=== PATIENT | female | born 1955 | race Caucasian/White ===

== ENCOUNTER 2017-03-24 15:44 | Emergency (ER) | payer OTHER ==
[~2017-03-24] VITALS: Ht 172.7 cm; Wt 71.8 kg
[2017-03-24 16:28] LABS: MCH 30.9 PG (29.0-34.0); MCHC 35.3 G/DL (30.0-36.0); MCV 87.5 FL (83-99); MEAN PLAT.VOLUME 11.1 uM^3 (9.5-12.4); PLATELET COUNT 186 K/uL (156-360); RBC DIS.WIDTH-CV 11.6 % (11.8-14.6); RBC DIS.WIDTH-SD 37.4 % (39-53); RED BLOOD COUNT 4.57 M/uL (3.80-5.20); WHITE BLOOD COUNT 5.1 K/uL (4.1-10.2)
[2017-03-24 16:38] LABS: CHLORIDE 92 mEq/L (99-109); POTASSIUM 3.2 mEq/L (3.7-5.4); SODIUM 130 mEq/L (136-147)
[2017-03-24 16:40] LABS: GLUCOSE 94 mg/dL (70-99)
[2017-03-24 16:41] LABS: ANION GAP 10 MEQ/L (2-14)
[2017-03-24 16:44] LABS: GFR ESTIMATE (CALCULATED) > 59 mL/min/
[2017-03-24 16:45] LABS: UREA NITROGEN (BUN) 23 mg/dL (9-23)
[2017-03-24 16:50] LABS: TROP-I INTERPRETATION NEGATIVE; TROPONIN-I < 0.01 ng/mL (0.0-0.30)
[2017-03-24 17:25] LABS: ADD MIUA? NO; BILIRUBIN NEGATIVE; BLOOD NEGATIVE; COLOR COLORLESS ((YELLOW)); GLUCOSE (STRIP) NEGATIVE; KETONES NEGATIVE; LEUKOCYTES NEGATIVE; NITRITE NEGATIVE; PROTEIN (STRIP) NEGATIVE; SPECIFIC GRAVITY 1.005 (1.000-1.030); UCUL ADDED? NO; UROBILINOGEN 0.2 MG/DL (0.2-1.0)
[2017-03-24 19:18] LABS: TROP-I INTERPRETATION NEGATIVE; TROPONIN-I < 0.01 ng/mL (0.0-0.30)
[2017-03-24] MEDS ORDERED: NITROSTAT0.4 MG SL (21:40)
[2017-03-24 21:50] VITALS: BP 156/74
== END 2017-03-24 22:05 | disposition home or self-care (01) ==
LOC: EME 15:44
PROVIDERS: Physician Assistant; Physician Assistant Medical
DX: R07.9 Chest pain, unspecified (principal); E87.6 Hypokalemia; E87.1 Hypo-osmolality and hyponatremia; I10 Essential (primary) hypertension; E78.00 Pure hypercholesterolemia, unspecified
CPT/HCPCS: 71020; 80048; 81003; 84484; 85027; 93005; 99281; 99285; J7030

== ENCOUNTER 2017-04-29 12:27 | Emergency (ER) | payer OTHER ==
[~2017-04-29] VITALS: Ht 172.7 cm; Wt 74.5 kg
[~2017-04-29 12:27] MED LIST: NITROSTAT0.4 MG SL
[2017-04-29 13:55] LABS: HEMATOCRIT 39.4 % (36.0-46.0); MCHC 34.5 G/DL (30.0-36.0); MCV 89.7 FL (83-99); PLATELET COUNT 221 K/uL (156-360); RBC DIS.WIDTH-CV 11.6 % (11.8-14.6); RED BLOOD COUNT 4.39 M/uL (3.80-5.20); WHITE BLOOD COUNT 5.2 K/uL (4.1-10.2)
[2017-04-29 14:04] LABS: CHLORIDE 97 mEq/L (99-109); POTASSIUM 4.2 mEq/L (3.7-5.4); SODIUM 133 mEq/L (136-147)
[2017-04-29 14:06] LABS: GLUCOSE 97 mg/dL (70-99)
[2017-04-29 14:07] LABS: ANION GAP 6 MEQ/L (2-14)
[2017-04-29 14:09] LABS: GFR ESTIMATE (CALCULATED) > 59 mL/min/
[2017-04-29 14:10] LABS: UREA NITROGEN (BUN) 16 mg/dL (9-23)
[2017-04-29 14:18] LABS: TROP-I INTERPRETATION NEGATIVE; TROPONIN-I < 0.01 ng/mL (0.0-0.30)
[2017-04-29] MEDS ORDERED: LOSARTAN POTAS100 MG PO (14:51)
[2017-04-29] MEDS ORDERED: CHLORTHALIDONE25 MG PO (14:52)
[2017-04-29] MEDS ORDERED: CARVEDILOL12.5 MG PO (14:52)
[2017-04-29] MEDS ORDERED: TENEX1 MG PO (14:53)
[2017-04-29 17:27] LABS: TROP-I INTERPRETATION NEGATIVE; TROPONIN-I < 0.01 ng/mL (0.0-0.30)
[2017-04-29 18:47] VITALS: BP 185/96
== END 2017-04-29 19:06 | disposition home or self-care (01) ==
LOC: EME 12:27
PROVIDERS: Emergency Medicine
DX: R07.89 Other chest pain (principal); R51 Headache; R42 Dizziness and giddiness; I10 Essential (primary) hypertension; I44.0 Atrioventricular block, first degree; Z87.440 Personal history of urinary (tract) infections
CPT/HCPCS: 70450; 71020; 80048; 84484; 85027; 93005; 99281; 99283; J7030

== ENCOUNTER → 2017-07-29 | Outpatient (CLI) | payer OTHER ==
[~2017-07-29] MED LIST changes: +CARVEDILOL12.5 MG PO; +CHLORTHALIDONE25 MG PO; +EYE DROPS ADVAN15 ML BOTH EYES; +HYDRALAZINE HCL25 MG PO; +LOSARTAN POTAS100 MG PO; +MAGNESIUM250 MG PO; +NITROGLYCERIN0.4 MG SL; +OMEGA 3 500 SO1 EACH PO; +POTASSIUM CHLO20 ME1 PO; +PROMETHAZINE HC25 M1 PO; +SPIRONOLACTONE25 MG PO; +TENEX1 MG PO; +TYLENOL EXTRA500 MG PO; +VITAMIN D2000 UNI1 PO; +[UNRECOGNIZED DRUG - OTHER]
== END | disposition home or self-care (01) ==
LOC: PICC 14:55
DX: L03.011 Cellulitis of right finger (principal)
CPT/HCPCS: 76937

== ENCOUNTER 2017-07-31 23:53 | Observation (INO) | payer OTHER ==
[~2017-07-31] VITALS: Ht 172.7 cm; Wt 75.6 kg
[~2017-07-31 23:53] MED LIST changes: -EYE DROPS ADVAN15 ML BOTH EYES; -HYDRALAZINE HCL25 MG PO; -MAGNESIUM250 MG PO; -NITROGLYCERIN0.4 MG SL; -OMEGA 3 500 SO1 EACH PO; -POTASSIUM CHLO20 ME1 PO; -PROMETHAZINE HC25 M1 PO; -SPIRONOLACTONE25 MG PO; -TYLENOL EXTRA500 MG PO; -VITAMIN D2000 UNI1 PO; -[UNRECOGNIZED DRUG - OTHER]
[2017-08-01 00:54] LABS: HEMATOCRIT 36.5 % (36.0-46.0); MCH 31.4 PG (29.0-34.0); MCHC 36.2 G/DL (30.0-36.0); MCV 86.9 FL (83-99); MEAN PLAT.VOLUME 10.7 uM^3 (9.5-12.4); PLATELET COUNT 233 K/uL (156-360); RBC DIS.WIDTH-CV 11.3 % (11.8-14.6); RBC DIS.WIDTH-SD 36.3 % (39-53); WHITE BLOOD COUNT 6.9 K/uL (4.1-10.2)
[2017-08-01 01:07] LABS: CHLORIDE 90 mEq/L (99-109); POTASSIUM 3.8 mEq/L (3.7-5.4); SODIUM 128 mEq/L (136-147)
[2017-08-01 01:09] LABS: GLUCOSE 125 mg/dL (70-99)
[2017-08-01 01:10] LABS: ANION GAP 10 MEQ/L (2-14)
[2017-08-01 01:13] LABS: GFR ESTIMATE (CALCULATED) > 59 mL/min/; UREA NITROGEN (BUN) 23 mg/dL (9-23)
[2017-08-01 01:17] LABS: TROP-I INTERPRETATION NEGATIVE; TROPONIN-I < 0.01 ng/mL (0.0-0.30)
[2017-08-01 02:12] LABS: D-DIMER ELISA < 150.00 ng/mLDDU (<230)
[2017-08-01] MEDS ORDERED: SPIRONOLACTONE25 MG PO ×2 (04:08→08:22)
[2017-08-01] MEDS ORDERED: POTASSIUM CHLO20 ME1 PO (04:09)
[2017-08-01 04:28] LABS: MAGNESIUM 2.1 mg/dL (1.3-2.7)
[2017-08-01 06:19] VITALS: BP 158/82
[2017-08-01 06:35] LABS: TROP-I INTERPRETATION NEGATIVE; TROPONIN-I < 0.01 ng/mL (0.0-0.30)
[2017-08-01 06:43] LABS: HDL CHOLESTEROL 50 MG/DL (Desirable>=50); LDL CHOLESTEROL 179 mg/dL (Desirable<100); NON-HDL CHOLESTEROL 193 mg/dL (Desirable<160); TOTAL CHOLESTEROL 243 mg/dL (Desirable<200); TRIGLYCERIDES 72 MG/DL (Normal: <150)
[2017-08-01 08:00] VITALS: BP 169/95
[2017-08-01] MEDS ORDERED: [UNRECOGNIZED DRUG - OTHER] (08:17)
[2017-08-01] MEDS ORDERED: PROMETHAZINE HC25 M1 PO (08:21)
[2017-08-01] MEDS ORDERED: NITROGLYCERIN0.4 MG SL (08:21)
[2017-08-01] MEDS ORDERED: CHLORTHALIDONE25 MG PO (08:22)
[2017-08-01] MEDS ORDERED: TYLENOL EXTRA500 MG PO (08:23)
[2017-08-01] MEDS ORDERED: VITAMIN D2000 UNI1 PO (08:24)
[2017-08-01] MEDS ORDERED: MAGNESIUM250 MG PO (08:24)
[2017-08-01] MEDS ORDERED: OMEGA 3 500 SO1 EACH PO (08:25)
[2017-08-01] MEDS ORDERED: EYE DROPS ADVAN15 ML BOTH EYES (08:26)
[2017-08-01 14:14] LABS: TROP-I INTERPRETATION NEGATIVE; TROPONIN-I < 0.01 ng/mL (0.0-0.30)
[2017-08-01 14:17] LABS: ADD MIUA? YES; BILIRUBIN NEGATIVE; BLOOD SMALL; COLOR COLORLESS ((YELLOW)); GLUCOSE (STRIP) NEGATIVE; KETONES NEGATIVE; LEUKOCYTES NEGATIVE; NITRITE NEGATIVE; PROTEIN (STRIP) NEGATIVE; SPECIFIC GRAVITY 1.004 (1.000-1.030); UROBILINOGEN 0.2 MG/DL (0.2-1.0)
[2017-08-01 15:28] LABS: BACTERIA NONE SEEN /HPF; EPITHELIAL CELLS RARE /HPF; MUCUS NONE SEEN /LPF; RED BLOOD CELLS 0-5 /HPF (0-5); WHITE BLOOD CELLS 0-5 /HPF (0-5)
[2017-08-01] MEDS ORDERED: HYDRALAZINE HCL25 MG PO (15:37)
== END 2017-08-01 16:34 | disposition home or self-care (01) ==
LOC: EME 23:53 → EDOF 08-01 03:33 → ENRESERV 08-01 03:34 → 5WEST 08-01 04:19
PROVIDERS: Emergency Medicine; Internal Medicine; Physician Assistant Medical
DX: R07.89 Other chest pain (principal); R00.2 Palpitations; E87.1 Hypo-osmolality and hyponatremia; R06.02 Shortness of breath; I34.1 Nonrheumatic mitral (valve) prolapse; I10 Essential (primary) hypertension; L03.011 Cellulitis of right finger; Z79.2 Long term (current) use of antibiotics; E78.5 Hyperlipidemia, unspecified; G89.29 Other chronic pain; M54.5 Low back pain; E87.6 Hypokalemia; F90.9 Attention-deficit hyperactivity disorder, unspecified type; F34.1 Dysthymic disorder; F41.8 Other specified anxiety disorders; G47.33 Obstructive sleep apnea (adult) (pediatric); N30.10 Interstitial cystitis (chronic) without hematuria; Z82.49 Family history of ischemic heart disease and other diseases of the circulatory system; Z88.2 Allergy status to sulfonamides; Z91.040 Latex allergy status
CPT/HCPCS: 80048; 80061; 81003; 83735; 83880; 84443; 84484; 85027; 85379; 93005; 99281; 99285; G0378; J1885; J2405

== ENCOUNTER 2018-01-12 15:52 | Emergency (ER) | payer OTHER ==
[~2018-01-12] VITALS: Ht 172.7 cm; Wt 72.0 kg
[~2018-01-12 15:52] MED LIST changes: +EYE DROPS ADVAN15 ML BOTH EYES; +HYDRALAZINE HCL25 MG PO; +MAGNESIUM250 MG PO; +NITROGLYCERIN0.4 MG SL; +OMEGA 3 500 SO1 EACH PO; +POTASSIUM CHLO20 ME1 PO; +PROMETHAZINE HC25 M1 PO; +SPIRONOLACTONE25 MG PO; +TYLENOL EXTRA500 MG PO; +VITAMIN D2000 UNI1 PO; +[UNRECOGNIZED DRUG - OTHER]
[2018-01-12] MEDS ORDERED: MOTRIN800 MG PO (18:05)
[2018-01-12 18:23] VITALS: BP 142/70
== END 2018-01-12 18:24 | disposition home or self-care (01) ==
LOC: EME 15:52
PROC: 2W3RX1Z Immobilization of Left Lower Leg using Splint (ICD-10-PCS; principal; 2018-01-12)
DX: S92.352A Displaced fracture of fifth metatarsal bone, left foot, initial encounter for closed fracture (principal); S93.402A Sprain of unspecified ligament of left ankle, initial encounter; X50.9XXA Other and unspecified overexertion or strenuous movements or postures, initial encounter; I10 Essential (primary) hypertension; Z87.891 Personal history of nicotine dependence; Z88.2 Allergy status to sulfonamides
CPT/HCPCS: 73610; 73630; 99281; 99284